=== PATIENT | male | born 1950 | race Caucasian/White ===

== ENCOUNTER 2018-03-30 08:34 | Emergency (ER) | payer OTHER ==
[~2018-03-30] VITALS: Ht 182.9 cm; Wt 99.8 kg
[~2018-03-30 08:34] MED LIST: ACETAMINOPHEN500 MG PO; ALAWAY10 ML OP; ALAWAY10 ML OPTH; AMLODIPINE BESY10 MG PO; ARICEPT5 MG PO; BUSPIRONE HCL15 MG PO; CARAFATE1 GM PO; CEROVITE L9 MG/15 ML PO; CEROVITE SENIO1 EACH PO; FERROUS SULFAT325 MG PO; FLUOXETINE HCL20 MG PO; FLUTICASONE PRO16 GM NS; GAS-X80 MG PO; GEODON40 MG PO; KEFLEX500 MG PO; METOPROLOL TAR100 MG PO; METOPROLOL TART25 MG PO; METOPROLOL TART50 MG PO; NYSTATIN1 EAC8 MC; NYSTATIN100000 UN1 PO; NYSTATIN15 G1 TP; OMEPRAZOLE20 MG PO; ONDANSETRON HCL4 MG PO; PIROXICAM20 MG PO; RISPERDAL0.5 MG PO; SODIUM BICARBO650 MG PO; SUCRALFATE1 GM PO; VITAMIN D2000 UNIT PO; VITAMIN D5000 UNIT PO; ZOFRAN4 MG PO; ZOFRAN8 MG PO
[2018-03-30] MEDS ORDERED: FAMCICLOVIR500 MG PO (09:28)
== END 2018-03-30 09:37 | disposition home or self-care (01) ==
LOC: ED 08:34
DX: B02.9 Zoster without complications (principal); D64.9 Anemia, unspecified; F41.9 Anxiety disorder, unspecified; F32.9 Major depressive disorder, single episode, unspecified; E78.5 Hyperlipidemia, unspecified; Z88.8 Allergy status to other drugs, medicaments and biological substances; Z79.899 Other long term (current) drug therapy
CPT/HCPCS: 99282

== ENCOUNTER 2018-12-14 09:16 | Emergency (ER) | payer MEDICARE, OTHER ==
[~2018-12-14] VITALS: Ht 182.9 cm; Wt 99.8 kg
[~2018-12-14 09:16] MED LIST changes: +FAMCICLOVIR500 MG PO
== END 2018-12-14 09:55 | disposition home or self-care (01) ==
LOC: ED 09:16
DX: J06.9 Acute upper respiratory infection, unspecified (principal); H61.21 Impacted cerumen, right ear; D64.9 Anemia, unspecified; F41.9 Anxiety disorder, unspecified; F32.9 Major depressive disorder, single episode, unspecified; E78.5 Hyperlipidemia, unspecified; Z88.8 Allergy status to other drugs, medicaments and biological substances; Z79.899 Other long term (current) drug therapy
CPT/HCPCS: 99283

== ENCOUNTER 2019-05-19 13:41 | Emergency (ER) | payer MEDICARE, OTHER ==
[~2019-05-19] VITALS: Ht 182.9 cm; Wt 94.4 kg
[2019-05-19] MEDS ORDERED: NAMZARIC 14 MG1 EACH (14:05)
== END 2019-05-19 14:45 | disposition home or self-care (01) ==
LOC: ED 13:41
DX: S00.93XA Contusion of unspecified part of head, initial encounter (principal); F41.9 Anxiety disorder, unspecified; F32.9 Major depressive disorder, single episode, unspecified; E78.5 Hyperlipidemia, unspecified; Z88.8 Allergy status to other drugs, medicaments and biological substances; Z79.899 Other long term (current) drug therapy; W18.30XA Fall on same level, unspecified, initial encounter
CPT/HCPCS: 70450; 99283-25

== ENCOUNTER 2021-06-18 08:26 | Emergency (ER) | payer MEDICARE, OTHER ==
[~2021-06-18] VITALS: Ht 182.9 cm; Wt 91.0 kg
[~2021-06-18 08:26] MED LIST changes: +NAMZARIC 14 MG1 EACH
== END 2021-06-18 09:09 | disposition home or self-care (01) ==
LOC: ED 08:26
DX: T43.291A Poisoning by other antidepressants, accidental (unintentional), initial encounter (principal); T43.221A Poisoning by selective serotonin reuptake inhibitors, accidental (unintentional), initial encounter; T43.591A Poisoning by other antipsychotics and neuroleptics, accidental (unintentional), initial encounter; D64.9 Anemia, unspecified; E78.5 Hyperlipidemia, unspecified; G47.30 Sleep apnea, unspecified; Z88.8 Allergy status to other drugs, medicaments and biological substances; Z79.899 Other long term (current) drug therapy
CPT/HCPCS: 99283

== ENCOUNTER 2023-05-27 18:58 | Emergency (ER) | payer MEDICARE, OTHER ==
[~2023-05-27] VITALS: Ht 182.9 cm; Wt 82.8 kg
[2023-05-27] MEDS ORDERED: ALLOPURINOL100 MG PO (20:12)
[2023-05-27] MEDS ORDERED: CETIRIZINE HCL10 MG PO (20:12)
[2023-05-27] MEDS ORDERED: CLONIDINE HCL0.1 MG PO (20:12)
[2023-05-27] MEDS ORDERED: FISH OIL 1,0001 EACH PO (20:13)
[2023-05-27] MEDS ORDERED: DAILY FIBER PO (20:13)
[2023-05-27] MEDS ORDERED: OLANZAPINE10 MG PO (20:14)
[2023-05-27] MEDS ORDERED: NAMZARIC 28 MG1 EACH PO (20:14)
[2023-05-27] MEDS ORDERED: ZIPRASIDONE HCL60 MG PO (20:16)
[2023-05-27 22:37] LABS: BASOPHILS 0.5 % (0-2); EOSINOPHILS 6.5 % (0-6); HEMATOCRIT 34.6 % (35.0-50.0); HEMOGLOBIN 11.6 g/dL (12.0-18.0); LYMPHOCYTES 8.6 % (24-44); MCH 30.1 (27-36); MCHC 33.5 g/dl (30-36); MONOCYTES 6.3 % (0-12); NEUTROPHILS 78.1 % (39-80); PLATELET COUNT 178 K/uL (140-440); RBC 3.84 M/ul (4.3-5.7); RDW 14.1 (10.5-15.0)
[2023-05-27 22:46] LABS: INR 0.95 (0.80-1.30); PROTIME 12.2 Sec (11.2-14.2)
[2023-05-27 22:50] LABS: ALBUMIN 3.5 g/dL (3.4-5.0); ALBUMIN/GLOBULIN RATIO 0.88 (1.1-2.4); ANION GAP 15.8 (7-21); BILIRUBIN, TOTAL 0.3 ng/dL (0.2-1.0); BUN/CREATININE RATIO 15.64 (6.0-28.6); CALCIUM 9.4 mg/dL (8.5-10.1); CREATININE, SERUM 2.62 mg/dL (0.70-1.30); POTASSIUM 4.8 mmol/L (3.5-5.1); PROTEIN, TOTAL 7.5 g/dL (6.4-8.2)
[2023-05-27 23:48] VITALS: BP 146/91
== END 2023-05-27 23:48 | disposition home or self-care (01) ==
LOC: ED 18:58
PROVIDERS: Emergency Medicine
DX: K94.01 Colostomy hemorrhage (principal); Y83.8 Other surgical procedures as the cause of abnormal reaction of the patient, or of later complication, without mention of misadventure at the time of the procedure; F03.C0 Unspecified dementia, severe, without behavioral disturbance, psychotic disturbance, mood disturbance, and anxiety; Z88.8 Allergy status to other drugs, medicaments and biological substances; Z79.899 Other long term (current) drug therapy
CPT/HCPCS: 36415; 80053; 85025; 85610; 85730; 99283

== ENCOUNTER 2023-12-30 13:06 | Inpatient (IN) | payer MEDICARE, OTHER ==
[~2023-12-30] VITALS: Ht 182.9 cm; Wt 82.8 kg
[~2023-12-30 13:06] MED LIST changes: +ALLOPURINOL100 MG PO; +DAILY FIBER PO; +FISH OIL 1,0001 EACH PO; -METOPROLOL TAR100 MG PO; -VITAMIN D5000 UNIT PO; +ZIPRASIDONE HCL60 MG PO
[2023-12-30 13:39] LABS: BASOPHILS 0.1 % (0-2); EOSINOPHILS 2.3 % (0-6); HEMATOCRIT 28.1 % (35.0-50.0); HEMOGLOBIN 9.4 g/dL (12.0-18.0); LYMPHOCYTES 5.2 % (24-44); MCH 29.9 (27-36); MCHC 33.5 g/dl (30-36); MCV 89.5 fl (81-99); MONOCYTES 3.4 % (0-12); PLATELET COUNT 128 K/uL (140-440); RBC 3.14 M/ul (4.3-5.7)
[2023-12-30 13:56] LABS: PARTIAL THROMBOPLASTIN TIME 34.9 Sec (22.9-41.3)
[2023-12-30 13:58] LABS: INR 0.99 (0.80-1.30); PROTIME 12.4 Sec (11.2-14.2)
[2023-12-30 14:04] LABS: ALBUMIN 2.7 g/dL (3.4-5.0); ALBUMIN/GLOBULIN RATIO 0.68 (1.1-2.4); ANION GAP 16.1 (7-21); BILIRUBIN, TOTAL 0.3 ng/dL (0.2-1.0); BUN/CREATININE RATIO 19.58 (6.0-28.6); CALCIUM 8.7 mg/dL (8.5-10.1); CREATININE, SERUM 2.91 mg/dL (0.70-1.30); POTASSIUM 5.1 mmol/L (3.5-5.1); PROTEIN, TOTAL 6.7 g/dL (6.4-8.2)
[2023-12-30 14:21] LABS: BILIRUBIN, URINE NEGATIVE (negative); BLOOD/HGB, URINE SMALL (Negative); KETONE, URINE NEGATIVE (Negative); LEUK ESTERASE, URINE NEGATIVE (negative); NITRITE, URINE NEGATIVE (negative); PH, URINE 5.5 (5-7)
[2023-12-30 14:29] LABS: WHITE BLOOD CELLS, URINE 0-1 /HPF (0-5)
[2023-12-30 14:30] LABS: REFLEX CULTURE, URINE No (No)
[2023-12-30] MEDS ORDERED: POLYETHYLENE GLYCOL 3350 1 PACKET PO PRN (14:45)
[2023-12-30] MEDS ORDERED: CEPHALEXIN500 MG PO (15:18)
[2023-12-30] MEDS ORDERED: EYE ITCH RELIEF5 ML OU (15:21)
[2023-12-30] MEDS ORDERED: NYSTATIN15 G1 TOP (15:26)
[2023-12-30] MEDS ORDERED: VASELINE WHITE P5 G1 NAS (15:30)
--- NOTE | 2023-12-30 15:32 | NUR ---
MED REC COMPLETE
[2023-12-30 15:59] VITALS: BP 134/80
[2023-12-30] MEDS ORDERED: ARTIFICIAL TEARS 15 ML BTL OU PRN (16:00)
[2023-12-30] MEDS ORDERED: NYSTATIN OINTMENT 15GM TUBE TOP PRN (16:00)
--- NOTE | 2023-12-30 16:11 | NUR ---
PT TO [place] [facility]IA [facility] AT 1540 CAREGIVER IS PRESENT. ASSISTED PT TO MOVE TO BED AND GET COMFORTABLE. VITALS TAKEN LOW HR REPORTED TO HOSPITALIST. PT TO MRI BEFORE ADMISSION IS FINISHED
[2023-12-30] MEDS ORDERED: ACETAMINOPHEN 500 MG TAB PO PRN (16:30)
[2023-12-30] MEDS ORDERED: ondansetron HCL 4 MG/2 ML VIAL IV PRN (16:30)
[2023-12-30] MEDS ORDERED: SODIUM BICARBONATE 650 MG TAB PO SCH (17:00)
[2023-12-30] MEDS ORDERED: ziprasidone HCL 40 MG CAP PO SCH (17:00)
[2023-12-30] MEDS ORDERED: SODIUM CHLORIDE 0.9% 1,000 ML IV SCH (17:00)
[2023-12-30] MEDS ORDERED: hydrALAZINE HCL 20 MG/ML VIAL IV PRN (17:00)
--- NOTE | 2023-12-30 17:54 | NUR ---
PT RESTING IN BED WATCHING TV. CAREGIVER WENT TO GET CPAP AND ENTERTAINMENT ITEMS FOR PT. HE DENIES NEED OF ANYTHING AT THIS TIME
[2023-12-30 18:08] VITALS: BP 151/71
--- NOTE | 2023-12-30 18:22 | NUR ---
HOSPITALIST IN TO SEE PT SPEAKS WITH CAREGIVER WELL UPDATE ON PT CONDITION AND PLANS FOR LIKELY DC TOMORROW DISCUSSED. PT USING I/S WITH ENCOURAGEMENT, NOT VERY EFFECTIVELY, BUT USING IT.
--- NOTE | 2023-12-30 18:52 | NUR ---
COLOSTOMY EMPTIED. PT INCONT OF URINE ASSISTED TO CHANGE UNDERGARMENT AND DO MICHAEL CARE. CAREGIVER CONTINUES IN THE ROOM WITH THIS PT. PT WATCHING TV AGREES HE IS COMFORTABLE
--- NOTE | 2023-12-30 19:26 | NUR ---
REPORT RECEIVED FROM DAY RN. PATIENT RESTING IN BED WITH CAREGIVER AT BEDSIDE. IV SITE PATENT, IVF RUNNING WITH NO ISSUES OR CONCERNS AT THIS TIME. TELE MONITOR LEADS WERE OFF. RECONNECTED LEADS AND IS WORKING READINGS PER PATIENT BASELINE. PATIENT WITH CPAP IN PLACE HE WANTS TO TAKE A NAP. NO FURTHER NEEDS AT THIS TIME. CALL LIGHT WITHIN REACH AND BED ALARM ON.
[2023-12-30 20:42] VITALS: BP 144/85
[2023-12-30 20:50] VITALS: BP 144/85
--- NOTE | 2023-12-30 20:50 | NUR ---
PATIENT ASSISTED TO BATHROOM. 1-2 PERSON ASSIST WITH FWW, AMBULATES WELL AND FOLLOWS CUES. PATIENT'S COLOSTOMY BAG EMPTIED, PATIENT VOIDED X 1 IN THE TOILET. LUNGS WITH NOTED RONCHI TO LEFT LOWER LOBE. ENCOURAGED PATIENT TO USE IS, EDUCATION PROVIDED ON USE OF IS. RIGHT ARM WEAKNESS CONTNTINUES. IVF INFUSING WITH NO ISSUES OR CONCERNS AT THIS TIME. VSS. CAREGIVER AT BEDSIDE. CALL LIGHT WITHIN REACH, BED ALARM ON.
[2023-12-30] MEDS ORDERED: VITAMIN A TOP SCH (21:00)
[2023-12-30] MEDS ORDERED: busPIRone HCL 15 MG TAB PO SCH (21:00)
[2023-12-30] MEDS ORDERED: [UNRECOGNIZED DRUG - OTHER] TOP SCH (21:00)
[2023-12-30] MEDS ORDERED: CEPHALEXIN MONOHYDRATE 500 MG CAP PO SCH (21:00)
[2023-12-30] MEDS ORDERED: PETROLATUM 5 GM PKT TOP SCH ×2 (21:00)
[2023-12-30] MEDS ORDERED: SUCRALFATE 1 GM TAB PO SCH (21:00)
[2023-12-30] MEDS ORDERED: MELATONIN 3 MG TAB PO PRN (21:00)
--- NOTE | 2023-12-30 22:10 | NUR ---
PATIENT RESTING IN BED CPAP IN PLACE. RESPIRATIONS EVEN AND UNLABORED. NO NEEDS AT THIS TIME. CAREGIVER HAS GONE HOME FOR THE NIGHT. BED ALARM IN PLACE. CALL LIGHT WITHIN REACH.
--- NOTE | 2023-12-31 00:22 | NUR ---
PATIENT RESTING IN BED WITH EYES CLOSED. RESPIRATIONS EVEN AND UNLABORED. CPAP ON AND FUNCTIONING. ALL NECESSARY ITEM WITHIN REACH. CALL LIGHT WITHIN REACH, BED ALARM ON.
[2023-12-31 01:54] VITALS: BP 149/84
--- NOTE | 2023-12-31 02:05 | NUR ---
VSS, PATIENT RESTING IN BED WITH CPAP IN PLACE. DENIES NEED TO USE BATHROOM AT THIS TIME. PULL UP REMAINS DRY. IVF INFUSING WITH NO ISSUES OR CONCERNS. CALL LIGHT WITHIN REACH. BED ALARM ON.
--- NOTE | 2023-12-31 04:22 | NUR ---
PATIENT RESTING IN BED WITH EYES CLOSED. RESPIRATIONS EVEN AND UNLABORED. CPAP IN PLACE. CALL LIGHT WITHIN REACH BED ALARM ON.
[2023-12-31 05:23] LABS: BASOPHILS 0.3 % (0-2); EOSINOPHILS 2.7 % (0-6); HEMATOCRIT 30.1 % (35.0-50.0); HEMOGLOBIN 10.1 g/dL (12.0-18.0); LYMPHOCYTES 6.5 % (24-44); MCH 29.8 (27-36); MCHC 33.6 g/dl (30-36); MCV 88.8 fl (81-99); MONOCYTES 4.7 % (0-12); NEUTROPHILS 85.8 % (39-80); PLATELET COUNT 121 K/uL (140-440); RBC 3.39 M/ul (4.3-5.7); RDW 16.1 (10.5-15.0)
[2023-12-31 05:31] LABS: ANION GAP 20.3 (7-21); BUN/CREATININE RATIO 22.1 (6.0-28.6); CALCIUM 9.2 mg/dL (8.5-10.1); CREATININE, SERUM 2.94 mg/dL (0.70-1.30); POTASSIUM 5.3 mmol/L (3.5-5.1)
[2023-12-31 06:24] VITALS: BP 158/74
--- NOTE | 2023-12-31 06:31 | NUR ---
VSS, PATIENT'S COLOSTOMY DRESSING CHANGED THIS AM. PATIENT TOLLERATED WELL. NO C/O PAIN OR DISCOMFORT AT THIS TIME. IVF INFUSING WITH NO ISSUES OR CONERNS. PATIENT CONTINUES TO EXPERIANCE RIGHT UPPER EXTREMITY WEAKNESS. CAREGIVER IS AT BEDSIDE. CALL LIGHT WITHIN REACH.
--- NOTE | 2023-12-31 07:08 | NUR ---
REPORT RECEIVED FROM DELVIS FRANCISCO. PATIENT RESTING IN BED WITH EYES OPEN. PT. STATES NO NEEDS AT THIS TIME. CAREGIVER AT BEDSIDE, CALL LIGHT WITHIN REACH.
[2023-12-31] MEDS ORDERED: ASPIRIN 81 MG CHEW PO SCH (08:00)
--- NOTE | 2023-12-31 08:55 | NUR ---
IN BED WITH CPAP IN PLACE, CAREGIVER IN ROOM. BOTH RESTING WITH EYES CLOSED. ALLOWED TO REST.
[2023-12-31] MEDS ORDERED: allopurinoL 100 MG TAB PO SCH (09:00)
[2023-12-31] MEDS ORDERED: FLUTICASONE PROPIONATE 50 MCG BTL NAS SCH (09:00)
[2023-12-31] MEDS ORDERED: PSYLLIUM SEED 1 PKT PACKET PO SCH (09:00)
[2023-12-31] MEDS ORDERED: CEPHALEXIN500 MG PO (09:06)
[2023-12-31] MEDS ORDERED: ASPIRIN81 MG PO (09:06)
[2023-12-31] MEDS ORDERED: FLUTICASONE PRO16 GM NAS (09:07)
[2023-12-31] MEDS ORDERED: LIPITOR40 MG PO (09:15)
[2023-12-31] MEDS ORDERED: CETIRIZINE HCL10 MG PO (09:16)
[2023-12-31] MEDS ORDERED: CLONIDINE HCL0.1 MG PO (09:16)
[2023-12-31] MEDS ORDERED: OLANZAPINE10 MG PO (09:16)
[2023-12-31] MEDS ORDERED: COZAAR25 MG PO (09:16)
[2023-12-31] MEDS ORDERED: ADULTS 50+ MUL1 EACH PO (09:16)
[2023-12-31] MEDS ORDERED: TYLENOL EXTRA500 MG PO (09:16)
[2023-12-31] MEDS ORDERED: NAMZARIC 28 MG1 EACH PO (09:16)
[2023-12-31] MEDS ORDERED: FISH OIL 1,0001 EAC5 PO (09:16)
[2023-12-31] MEDS ORDERED: ONDANSETRON HCL8 MG PO (09:16)
[2023-12-31] MEDS ORDERED: SIMETHICONE80 MG PO (09:16)
[2023-12-31] MEDS ORDERED: VITAMIN D350 MC3 PO (09:16)
[2023-12-31] MEDS ORDERED: METOPROLOL TAR100 MG PO (09:16)
[2023-12-31] MEDS ORDERED: MUPIROCIN22 GM TOP (09:16)
[2023-12-31] MEDS ORDERED: FLUOXETINE HCL20 MG PO (09:16)
[2023-12-31] MEDS ORDERED: CETIRIZINE HCL 10 MG TAB PO SCH (09:26)
[2023-12-31] MEDS ORDERED: FLUOXETINE HCL 20 MG CAP PO SCH (09:32)
--- NOTE | 2023-12-31 09:37 | NUR ---
ATTEMPTED TO VISIT DURING SPIRITUAL CARE ROUNDS. PT RECEIVING NURSING CARE. DID NOT INTERRUPT. PROVIDED PRAYER.
[2023-12-31 09:54] LABS: CHOLESTEROL/HDL RATIO 3.3
--- NOTE | 2023-12-31 10:08 | NUR ---
Patient lives in [facility]. Has assistance with care 01/04. Uses a walker, CPAP and has a back belt he wears daily to assist with chronic back pain. PT/OT/ST all recommend home health at [place]. Discuss with caregivers present, they call [facility] and verify [facility] as preference for [place]. Deny other needs at this time. Referral will be sent to [facility]. Dr. Rosario notified.
[2023-12-31 10:47] VITALS: BP 145/76
[2023-12-31 10:54] VITALS: BP 145/76
--- NOTE | 2023-12-31 11:14 | NUR ---
Home Health Referral, orders, prog notes, PT/OT/ST samantha faxed to [facility].
[2023-12-31] MEDS ORDERED: LOSARTAN POTASSIUM 25 MG TAB PO SCH (11:35)
[2023-12-31] MEDS ORDERED: PHARMACY RENAL DOSE ADJUSTMENT 1 DOSE MISC PO SCH (12:00)
--- NOTE | 2023-12-31 14:41 | EKG ---
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 rate has decreased BY 33 BPM T wave amplitude has increased in Anterior leads Confirmed by Julio Rosario ([id number]) on 12/31/2023 2:41:25 PM Electronically Signed By: JULIO ROSARIO MD 12/31/23 1441 PATIENT NAME: RATNA COOL Electrocardiogram DATE OF : 52 PHYSICIAN: JULIO ROSARIO MD REPORT #: [id number] REPORT IS CONFIDENTIAL AND NOT TO BE RELEASED WITHOUT AUTHORIZATION
[2023-12-31] MEDS ORDERED: OLANZapine 10 MG TAB PO SCH (17:00)
[2023-12-31] MEDS ORDERED: MEMANTINE HCL 5 MG TAB PO SCH (17:00)
[2023-12-31] MEDS ORDERED: DONEPEZIL HCL 10 MG TAB PO SCH (17:00)
[2023-12-31] MEDS ORDERED: cloNIDine HCL 0.1 MG TAB PO SCH (21:00)
[2024-01-01 11:08] LABS: IRON BINDING CAPACITY TOTAL 293 ug/dL (240-450); IRON,SERUM OR PLASMA 168 ug/dL (45-182); TRANSFERRIN SATURATION 57 %sat (20-50)
[2024-01-01 12:27] LABS: FOLATE,SERUM >22.3 ng/mL (>=5.9)
[2024-01-01 18:19] LABS: FERRITIN 819 ng/mL (31-409)
== END 2023-12-31 11:15 | disposition home or self-care (01) | DRG 69 ==
LOC: ED 13:06 → MS 13:08
PROVIDERS: Emergency Medicine; ADMIT Family Medicine; ATTEND Family Medicine
DX: G45.9 Transient cerebral ischemic attack, unspecified (principal); E87.1 Hypo-osmolality and hyponatremia; N39.0 Urinary tract infection, site not specified; N18.4 Chronic kidney disease, stage 4 (severe); J98.11 Atelectasis; R29.810 Facial weakness; R00.1 Bradycardia, unspecified; I12.9 Hypertensive chronic kidney disease with stage 1 through stage 4 chronic kidney disease, or unspecified chronic kidney disease; F32.A Depression, unspecified; E78.5 Hyperlipidemia, unspecified; F39 Unspecified mood [affective] disorder; F60.9 Personality disorder, unspecified; F41.9 Anxiety disorder, unspecified; F03.90 Unspecified dementia, unspecified severity, without behavioral disturbance, psychotic disturbance, mood disturbance, and anxiety; G47.33 Obstructive sleep apnea (adult) (pediatric); R26.9 Unspecified abnormalities of gait and mobility; D63.1 Anemia in chronic kidney disease; D69.6 Thrombocytopenia, unspecified; E87.6 Hypokalemia; I44.0 Atrioventricular block, first degree; Z98.890 Other specified postprocedural states; Z99.89 Dependence on other enabling machines and devices; Z88.8 Allergy status to other drugs, medicaments and biological substances; Z79.899 Other long term (current) drug therapy; Z93.3 Colostomy status
CPT/HCPCS: 36415; 51701; 70450; 70496; 70498; 70551; 71045; 80048; 80053; 80061; 81001; 82607; 82728; 82746; 83036; 83550; 84443; 85025; 85610; 85730; 92610; 93005; 93010; 93306; 97163; 97167; 99285-25; A9270; G0378; J7030; Q9967

== ENCOUNTER 2024-04-15 14:48 | Emergency (ER) | payer MEDICARE, OTHER ==
[~2024-04-15] VITALS: Ht 182.9 cm; Wt 83.7 kg
[~2024-04-15 14:48] MED LIST changes: +ADULTS 50+ MUL1 EACH PO; +ASPIRIN81 MG PO; +CEPHALEXIN500 MG PO; +CETIRIZINE HCL10 MG PO; +CLONIDINE HCL0.1 MG PO; +COZAAR25 MG PO; +EYE ITCH RELIEF5 ML OU; +FISH OIL 1,0001 EAC5 PO; +FLUTICASONE PRO16 GM NAS; +LIPITOR40 MG PO; +METOPROLOL TAR100 MG PO; +MUPIROCIN22 GM TOP; +NAMZARIC 28 MG1 EACH PO; +NYSTATIN15 G1 TOP; +OLANZAPINE10 MG PO; +ONDANSETRON HCL8 MG PO; +SIMETHICONE80 MG PO; +TYLENOL EXTRA500 MG PO; +VASELINE WHITE P5 G1 NAS; +VITAMIN D350 MC3 PO
[2024-04-15 16:20] VITALS: BP 181/89
== END 2024-04-15 16:20 | disposition home or self-care (01) ==
LOC: ED 14:48
DX: R04.0 Epistaxis (principal); E78.5 Hyperlipidemia, unspecified; I10 Essential (primary) hypertension; G47.30 Sleep apnea, unspecified; Z79.51 Long term (current) use of inhaled steroids; Z79.899 Other long term (current) drug therapy; Z79.82 Long term (current) use of aspirin; Z88.8 Allergy status to other drugs, medicaments and biological substances
CPT/HCPCS: 99283

== ENCOUNTER 2024-10-09 21:04 | Emergency (ER) | payer MEDICARE, OTHER ==
[~2024-10-09] VITALS: Ht 182.9 cm; Wt 84.8 kg
[2024-10-09] MEDS ORDERED: ENALAPRILAT DIHYDRATE 1.25 MG/ML VIAL IV ONE ×2 (21:30→23:30)
[2024-10-09 21:33] LABS: BILIRUBIN, URINE NEGATIVE (negative); BLOOD/HGB, URINE TRACE-I (Negative); KETONE, URINE NEGATIVE (Negative); LEUK ESTERASE, URINE NEGATIVE (negative); NITRITE, URINE NEGATIVE (negative)
[2024-10-09 21:40] LABS: BACTERIA, URINE 1+ /hpf (negative); CASTS, URINE HYALINE 1+ \\lpf; CRYSTALS, URINE NONE SEEN (0-1+); EPITHELIAL CELLS, URINE SQUAMOUS 1+ /lpf (0-1+)
[2024-10-09 21:41] LABS: COLLECTION TYPE, URINE CLEAN CATCH; REFLEX CULTURE, URINE Yes (No)
[2024-10-09 22:03] LABS: BASOPHILS 0.7 % (0-2); EOSINOPHILS 4.2 % (0-6); HEMATOCRIT 32.5 % (35.0-50.0); LYMPHOCYTES 8.6 % (24-44); MCH 29.4 (27-36); MCHC 33.7 g/dl (30-36); MCV 87.2 fl (81-99); MONOCYTES 8.4 % (0-12); NEUTROPHILS 78.1 % (39-80); PLATELET COUNT 211 K/uL (140-440); RBC 3.73 M/ul (4.3-5.7); RDW 16.4 (10.5-15.0)
[2024-10-09 22:22] LABS: ALBUMIN 3.6 g/dL (3.4-5.0); ALBUMIN/GLOBULIN RATIO 0.95 (1.1-2.4); ANION GAP 11.1 (7-21); BILIRUBIN, TOTAL 0.4 ng/dL (0.2-1.0); BUN/CREATININE RATIO 13.63 (6.0-28.6); CALCIUM 9.5 mg/dL (8.5-10.1); CREATININE, SERUM 2.64 mg/dL (0.70-1.30); POTASSIUM 4.1 mmol/L (3.5-5.1); PROTEIN, TOTAL 7.4 g/dL (6.4-8.2)
[2024-10-09] MEDS ORDERED: LOSARTAN POTASS50 MG PO (23:29)
[2024-10-10 00:14] VITALS: BP 165/76
== END 2024-10-10 00:10 | disposition home or self-care (01) ==
LOC: ED 21:04
PROVIDERS: Family Medicine
DX: I10 Essential (primary) hypertension (principal); F03.90 Unspecified dementia, unspecified severity, without behavioral disturbance, psychotic disturbance, mood disturbance, and anxiety; F32.A Depression, unspecified; F41.9 Anxiety disorder, unspecified; Z88.8 Allergy status to other drugs, medicaments and biological substances; Z79.82 Long term (current) use of aspirin; Z79.899 Other long term (current) drug therapy
CPT/HCPCS: 36415; 80053; 81001; 83735; 85025; 85610; 87088; 96374; 96376; 99283-25

== ENCOUNTER 2025-03-02 13:16 | Emergency (ER) | payer MEDICARE, OTHER ==
[~2025-03-02] VITALS: Ht 182.9 cm; Wt 80.2 kg
[~2025-03-02 13:16] MED LIST changes: +LOSARTAN POTASS50 MG PO
[2025-03-02] MEDS ORDERED: FLUCONAZOLE150 MG PO (14:59)
[2025-03-02] MEDS ORDERED: FEROSUL325 MG PO (14:59)
[2025-03-02] MEDS ORDERED: LIDOCAINE 2% VISCOUS 6 ML SYR MM ONE (16:30)
[2025-03-02 17:32] LABS: BILIRUBIN, URINE NEGATIVE (negative); BLOOD/HGB, URINE MODERATE (Negative); KETONE, URINE NEGATIVE (Negative); LEUK ESTERASE, URINE SMALL (negative); NITRITE, URINE NEGATIVE (negative); PH, URINE 5.5 (5-7)
[2025-03-02 17:40] LABS: BACTERIA, URINE 3+ /hpf (negative); CASTS, URINE NONE SEEN \\lpf; COLLECTION TYPE, URINE CLEAN CATCH; CRYSTALS, URINE NONE SEEN (0-1+); EPITHELIAL CELLS, URINE NONE SEEN /lpf (0-1+); REFLEX CULTURE, URINE Yes (No); WHITE BLOOD CELLS, URINE >50 /HPF (0-5)
[2025-03-02] MEDS ORDERED: LEVOFLOXACIN750 MG PO (18:23)
[2025-03-02] MEDS ORDERED: levoFLOXacin 750 MG TAB PO ONE (18:30)
[2025-03-02 18:43] VITALS: BP 176/85
== END 2025-03-02 18:44 | disposition home or self-care (01) ==
LOC: ED 13:16
PROVIDERS: Emergency Medicine
DX: N39.0 Urinary tract infection, site not specified (principal); I10 Essential (primary) hypertension; G47.33 Obstructive sleep apnea (adult) (pediatric); Z88.8 Allergy status to other drugs, medicaments and biological substances; Z79.82 Long term (current) use of aspirin
CPT/HCPCS: 81001; 87088; 99283

== ENCOUNTER 2025-04-24 02:19 | Emergency (ER) | payer MEDICARE, OTHER ==
[~2025-04-24] VITALS: Ht 182.9 cm; Wt 83.5 kg
[~2025-04-24 02:19] MED LIST changes: +FEROSUL325 MG PO; +FLUCONAZOLE150 MG PO; +LEVOFLOXACIN750 MG PO
[2025-04-24 02:46] LABS: BASOPHILS 0.4 % (0.2-1.2); EOSINOPHILS 6.1 % (0.8-7.0); LYMPHOCYTES 14.1 % (21.8-53.1); MCH 28.9 PG (25.7-32.2); MCHC 34.6 g/dL (32.3-36.5); MCV 83.7 fL (79.0-92.2); MONOCYTES 9.6 % (5.3-12.2); NEUTROPHILS 69.3 % (34.0-67.9); RBC 3.49 M/uL (4.63-6.08)
[2025-04-24 03:40] LABS: ALCOHOL, MEDICAL <3 ng/dL (<3); ALT (SGPT) 42 U/L (14-59); AST (SGOT) 38 U/L (15-37); GLOMERULAR FILTRATION RATE,EST 25 mL/min (>60); PROTEIN, TOTAL 7.3 g/dL (6.4-8.2); UREA NITROGEN 32 mg/dL (7-18)
[2025-04-24 04:14] LABS: BLOOD/HGB, URINE SMALL (Negative); KETONE, URINE NEGATIVE (Negative); LEUK ESTERASE, URINE NEGATIVE (negative); NITRITE, URINE NEGATIVE (negative)
[2025-04-24 04:28] LABS: CRYSTALS, URINE NONE SEEN (0-1+); EPITHELIAL CELLS, URINE SQUAMOUS 1+ /lpf (0-1+)
[2025-04-24 04:29] LABS: BACTERIA, URINE 1+ /hpf (negative); CASTS, URINE NONE SEEN \\lpf
[2025-04-24 04:30] LABS: REFLEX CULTURE, URINE No (No)
[2025-04-24] MEDS ORDERED: levETIRAcetam 4,500 MG in DEXTROSE 5% 100 ML IV ONE (04:45)
[2025-04-24] MEDS ORDERED: ENALAPRILAT DIHYDRATE 1.25 MG/ML VIAL IV ONE (05:00)
[2025-04-24] MEDS ORDERED: METOPROLOL TARTRATE 5 MG/5 ML VIAL IV SCH (05:15)
[2025-04-24 05:39] LABS: AMPHETAMINES, URINE NEGATIVE (NEGATIVE); BARBITURATES, URINE NEGATIVE (NEGATIVE); BENZODIAZEPINE, URINE NEGATIVE (NEGATIVE); CANNABINOID, URINE NEGATIVE (NEGATIVE); COCAINE, URINE NEGATIVE (NEGATIVE); ECSTASY, URINE NEGATIVE (NEGATIVE); FENTANYL, URINE NEGATIVE (NEGATIVE); METHADONE, URINE NEGATIVE (NEGATIVE); OPIATES, URINE NEGATIVE (NEGATIVE); OXYCODONE, URINE NEGATIVE (NEGATIVE); PHENCYCLIDINE, URINE NEGATIVE (NEGATIVE)
[2025-04-24] MEDS ORDERED: METOPROLOL TARTRATE 5 MG/5 ML VIAL IV ONE (06:00)
[2025-04-24 06:19] VITALS: BP 173/90
== END 2025-04-24 06:21 | disposition short-term general hospital (02) ==
LOC: ED 02:19
PROVIDERS: Family Medicine
DX: S06.6X0A Traumatic subarachnoid hemorrhage without loss of consciousness, initial encounter (principal); W19.XXXA Unspecified fall, initial encounter; I10 Essential (primary) hypertension; F03.90 Unspecified dementia, unspecified severity, without behavioral disturbance, psychotic disturbance, mood disturbance, and anxiety; F41.9 Anxiety disorder, unspecified; Z88.8 Allergy status to other drugs, medicaments and biological substances; Z79.82 Long term (current) use of aspirin; Z79.899 Other long term (current) drug therapy
CPT/HCPCS: 36415; 51701; 70450; 70486; 72125; 80053; 80307; 81001; 85025; 96365; 96375; 96376; 99284-25; G0480; J1953; J7060